=== PATIENT | female | born 1955 | race Caucasian/White ===

== ENCOUNTER 2020-05-31 13:17 | Inpatient (IN) | payer MEDICAID ==
[~2020-05-31] VITALS: Ht 157.5 cm; Wt 73.5 kg
[2020-05-31 14:10] LABS: BASOPHIL % 1.2 % (0-2); RED CELL DISTRIBUTION WIDTH 12.5 % (11.5-14.5)
[2020-05-31 14:11] LABS: PLATELET COUNT 492 x10^3mcL (130-400)
[2020-05-31 14:47] LABS: CALCIUM 9.2 mg/dL (8.5-10.1); CARBON DIOXIDE 30.6 mmol/L (21-32); CHLORIDE SERUM 99 mmol/L (98-107); CREATININE SERUM 0.8 mg/dL (0.6-1.0); GFR1 > 60 mL/min; GLUCOSE SERUM 180 mg/dL (74-106); SODIUM SERUM 139 mmol/L (136-145)
[2020-05-31 14:53] LABS: ALKALINE PHOSPHATASE 91 U/L (46-116); ALT/SGPT 37 U/L (14-59); AST/SGOT 23 U/L (15-37); BILIRUBIN TOTAL 0.5 mg/dL (0.20-1.00); LACTIC DEHYDROGENASE (LDH) 243 U/L (100-190); TOTAL PROTEIN, SERUM 7.7 g/dL (6.4-8.2)
[2020-05-31 14:54] LABS: ALBUMIN 3.2 g/dL (3.4-5.0)
[2020-05-31] MEDS ORDERED: LISINOPRIL20 MG GT (15:35)
[2020-05-31 16:01] LABS: MAGNESIUM 2.3 mg/dL (1.8-2.4); PHOSPHOROUS 3.8 mg/dL (2.5-4.9)
[2020-05-31 16:42] LABS: microscopic required? YES; urine erythrocyte NEGATIVE (NEGATIVE)
[2020-05-31 18:58] VITALS: BP 137/80
[2020-05-31 20:56] VITALS: BP 144/66
[2020-06-01 05:53] VITALS: BP 121/64
[2020-06-01 07:11] LABS: C REACTIVE PROTEIN 7.3 mg/dL (<=0.9); CALCIUM 8.9 mg/dL (8.5-10.1); CARBON DIOXIDE 26.5 mmol/L (21-32); CHLORIDE SERUM 102 mmol/L (98-107); CREATININE SERUM 0.8 mg/dL (0.6-1.0); GFR1 > 60 mL/min; GLUCOSE SERUM 236 mg/dL (74-106); MAGNESIUM 2.3 mg/dL (1.8-2.4); POTASSIUM SERUM 4.4 mmol/L (3.5-5.1); SODIUM SERUM 138 mmol/L (136-145)
[2020-06-01 07:15] LABS: BASOPHIL % 0.2 % (0-2); RED CELL DISTRIBUTION WIDTH 12.9 % (11.5-14.5)
[2020-06-01 08:33] LABS: ERYTHROCYTE SED RATE 49 mm/hr (0-30)
[2020-06-01 08:48] LABS: PLATELET COUNT 503 x10^3mcL (130-400)
[2020-06-01 08:56] VITALS: BP 157/67
[2020-06-01 10:26] VITALS: Ht 157.5 cm; Wt 73.5 kg
[2020-06-01 12:56] VITALS: BP 164/74
[2020-06-01 16:58] VITALS: BP 158/71
[2020-06-01 19:55] VITALS: BP 154/71
[2020-06-02 00:20] LABS: AMPHETAMINE QUAL UR NONE DETECTED (See below)
[2020-06-02 05:58] VITALS: BP 105/78
[2020-06-02 07:00] LABS: C REACTIVE PROTEIN 3.6 mg/dL (<=0.9); CALCIUM 9.1 mg/dL (8.5-10.1); CARBON DIOXIDE 25.9 mmol/L (21-32); CHLORIDE SERUM 103 mmol/L (98-107); CREATININE SERUM 0.8 mg/dL (0.6-1.0); GFR1 > 60 mL/min; GLUCOSE SERUM 145 mg/dL (74-106); MAGNESIUM 2.4 mg/dL (1.8-2.4); PHOSPHOROUS 3.8 mg/dL (2.5-4.9); POTASSIUM SERUM 4.2 mmol/L (3.5-5.1); SODIUM SERUM 138 mmol/L (136-145)
[2020-06-02 07:42] LABS: BASOPHIL % 0.2 % (0-2); RED CELL DISTRIBUTION WIDTH 12.7 % (11.5-14.5)
[2020-06-02 07:58] VITALS: BP 142/64
[2020-06-02 10:27] LABS: ERYTHROCYTE SED RATE 38 mm/hr (0-30)
[2020-06-02 10:49] LABS: PLATELET COUNT 574 x10^3mcL (130-400)
[2020-06-02 11:37] VITALS: BP 133/60
[2020-06-02 16:07] VITALS: BP 150/71
[2020-06-02 19:50] VITALS: BP 166/85
[2020-06-03 01:05] VITALS: BP 165/89
[2020-06-03 05:00] VITALS: BP 179/79
[2020-06-03 06:16] VITALS: BP 162/79
[2020-06-03 06:30] LABS: BASOPHIL % 0.7 % (0-2); RED CELL DISTRIBUTION WIDTH 12.8 % (11.5-14.5)
[2020-06-03 06:42] LABS: PLATELET COUNT 637 x10^3mcL (130-400)
[2020-06-03 06:50] LABS: CALCIUM 9.1 mg/dL (8.5-10.1); CARBON DIOXIDE 24.4 mmol/L (21-32); CHLORIDE SERUM 100 mmol/L (98-107); CREATININE SERUM 0.9 mg/dL (0.6-1.0); GFR1 > 60 mL/min; GLUCOSE SERUM 141 mg/dL (74-106); MAGNESIUM 2.2 mg/dL (1.8-2.4); PHOSPHOROUS 3.9 mg/dL (2.5-4.9); POTASSIUM SERUM 4.1 mmol/L (3.5-5.1); SODIUM SERUM 136 mmol/L (136-145)
[2020-06-03 08:13] VITALS: BP 128/80; BP 156/73
[2020-06-03] MEDS ORDERED: DECADRON6 MG PO (10:50)
[2020-06-03] MEDS ORDERED: ZES20 PO (10:50)
[2020-06-03] MEDS ORDERED: METFORMIN HCL500 M4 PO (10:50)
[2020-06-03] MEDS ORDERED: ELIQUIS2.5 MG PO (10:50)
[2020-06-03 12:41] VITALS: BP 146/62
[2020-06-03 16:37] VITALS: BP 143/78
== END 2020-06-03 20:05 | disposition home or self-care (01) | DRG 137 ==
LOC: ED 13:17 → DU 15:02
PROVIDERS: Internal Medicine; Specialist; ADMIT Internal Medicine; ATTEND Internal Medicine
DX: U07.1 COVID-19 (principal); J96.01 Acute respiratory failure with hypoxia; A08.39 Other viral enteritis; J12.89 Other viral pneumonia; J45.909 Unspecified asthma, uncomplicated; I10 Essential (primary) hypertension; E11.65 Type 2 diabetes mellitus with hyperglycemia; Z86.79 Personal history of other diseases of the circulatory system; Z79.899 Other long term (current) drug therapy
CPT/HCPCS: 36600; 82962; 83880; 87046; 87046-59; 87804; 94150; G0378; J0456; J0696; J1100; J1644; J1815; J2543; J7030; J7050; Q0092; U0003-CS